=== PATIENT | male | born 1945 | race African-American/Black ===

== ENCOUNTER 2016-11-21 19:11 | Inpatient (IN) ==
[2016-11-21] MEDS ORDERED: LR 1,000 ML IV PRN (19:17)
[2016-11-21] MEDS ORDERED: ZOFRAN IV ONE (19:18)
[2016-11-21] MEDS ORDERED: TYLENOL PO ONE (19:33)
[2016-11-21 19:46] LABS: MANUAL DIFF NEEDED? NO
[2016-11-21 19:48] LABS: BILIRUBIN URINE NEGATIVE (NEGATIVE); BLOOD URINE 3+ (NEGATIVE); CLARITY SL. CLOUDY (CLEAR); COLOR YELLOW; LEUKOCYTES URINE 1+ (NEGATIVE); NITRITE URINE POSITIVE (NEGATIVE); PROTEIN URINE 2+(100 mg/dL) mg/dL (NEGATIVE); SP GRAVITY URINE 1.015; UROBILINOGEN URINE 1+(1 mg/dL)
[2016-11-21 19:51] LABS: BASO% 0.1 % (0.0-0.8); EOS# 0.02 X1000 (0.0-0.7); EOS% 0.2 % (0.0-10.0); HEMATOCRIT 43.3 % (42.0-52.0); HEMOGLOBIN 14.4 g/dL (14.0-18.0); IMM GRAN# 0.02 X1000 (0.0-0.04); IMM GRAN% 0.2 % (0.0-0.5); LYMPH# 1.45 X1000 (1.2-3.4); LYMPH% 16.3 % (20.5-51.1); MCH 26.3 PG (27-31); MCHC 33.3 g/dL (33-37); MCV 79.2 FL (81-99); MONO# 1.26 X1000 (0.11-0.59); MONO% 14.2 % (1.7-9.3); MPV 12.4 FL (7.4-10.4); PLT 180 X1000 (130-400); RBC 5.47 XMIL (4.7-6.1)
[2016-11-21 19:54] LABS: URINE CULTURE PL NEEDED? YES; URINE EPITHELIAL CELLS <10 /HPF (<10); URINE SOURCE CLEAN CATCH; URINE WBC 20-40 /HPF (<10)
[2016-11-21] MEDS ORDERED: ZOSYN 3.375 GM/NS 3.375 GM/50 ML IVPB IV ONE (20:13)
[2016-11-21 20:15] LABS: AGAP 16; ALBUMIN 3.8 g/dL (3.5-5.0); ALKALINE PHOSPHATASE 162 U/L (32-122); BUN 7 mg/dL (8-22); CALCIUM 9.5 mg/dL (8.8-10.2); CHLORIDE 96 mmol/L (98-107); COSMO 274; GOT 121 U/L (10-34); GPT 110 U/L (10-44); LIPASE 15 U/L (13-60); POTASSIUM 3.5 mmol/L (3.5-5.1); SODIUM 131 mmol/L (136-145); TCO2 20 mmol/L (25-35); TOTAL PROTEIN 7.9 g/dL (6.3-8.3)
[2016-11-21] MEDS ORDERED: ZOSYN 3.375 GM/NS 3.375 GM/50 ML IVPB ONE (20:34)
[2016-11-21] MEDS ORDERED: MORPHINE IV ONE (21:31)
--- NOTE | 2016-11-21 21:51 | PROVIDER DOCUMENTATION ---
This chart was entered by Kiesha Payne Scribe, acting as scribe for Berny Moncada MD. HPI-Abdominal Pain/GI Problem - General Chief Complaint: Abdominal Pain Stated Complaint: ABD PAIN Time Seen by Provider: 11/21/16 19:16 Source: patient, family Allergies/Adverse Reactions: Patient Allergies Allergy/AdvReac Type Severity Reaction Status Date / Time hydrocodone bitartrate * AdvReac Severe DIARRHEA Verified 11/21/16 19:29 [From Lortab] Home Medications: Home Medication List Medication Instructions Recorded Confirmed Last Taken Type Amlodipine [Norvasc] 5 mg PO BID 02/10/13 11/21/16 1 Day Ago History Metoprolol [Lopressor] 50 mg PO BID 02/10/13 11/21/16 1 Day Ago History Metformin HCl 500 mg PO BID 07/20/15 11/21/16 1 Day Ago History Omeprazole 40 mg PO DAILY 05/29/16 11/21/16 1 Day Ago History Acetaminophen with Codeine 1 PO Q6H PRN PRN 11/21/16 Unknown History [Tylenol with Codeine #3 Tablet] - History of Present Illness-ABD Nature of Presenting Problems: 71 year old M presents to the ED with a cc of RLQ ABD pain intermittent x"weeks. " states that he has been seen by PCP who sent him to Dr. Morris. Pt had test ran last , ordered by Dr. Morris, and said there was nothing surgical in ABD and to follow back up with PCP. Pt states that he has had diarrhea since Sunday with intermittent chills. states that this morning he vomited prior to eating. Pt has had grits, jello and apple juice. Pt had a fever of 102.9 on arrival to ED. Abdominal Pain Onset Location: reports: RLQ Pain Radiation: reports: no radiation Quality of Pain: reports: aching Severity in ED: reports: mild Onset/Duration: reports: other ("weeks") Timing: reports: still present Associated Symptoms: reports: diarrhea, nausea, vomiting Bruising or Bleeding Gums?: No Similar Symptoms Previously?: Yes Recently seen or treated by another doctor?: Yes Review of Systems - Adult - REVIEW OF SYSTEMS - ADULT Constitutional: reports: fever. denies: chills Eyes: reports: no symptoms reported Ears, Nose, Mouth & Throat: reports: no symptoms reported Cardiovascular: denies: chest pain, palpitations Respiratory: denies: cough, pleurisy Gastrointestinal: reports: abdominal pain, diarrhea, nausea, vomiting Genitourinary: denies: dysuria, hematuria Musculoskeletal: reports: no symptoms reported Integumentary: reports: no symptoms reported Neurological: reports: no symptoms reported Psychiatric: reports: no symptoms reported Endocrine: reports: no symptoms reported Hematologic/Lymphatic: reports: no symptoms reported Allergic/Immunologic: reports: no symptoms reported All Other Systems: Reviewed and Negative Past History - Adult - PAST MEDICAL HISTORY-ADULT Review of Records: reports: Nursing Assessment Review, Medications Reviewed Major Childhood Illnesses: reports: denies history Cardiovascular: reports: cardiac disease, HTN, hyperlipidemia Respiratory: reports: asthma Gastrointestinal: reports: diverticulosis Genitourinary: reports: other (bladder issues) Endocrine/Immune: reports: Diabetes - PRIOR SURGERIES/PROCEDURES Surgical/Procedure History: reports: reviewed, not pertinent, appendectomy, other (left shoulder surgery, bladder surgery) - PRIOR HOSPITALIZATIONS Prior Hospitalizations: reports: for other non-related - IMMUNIZATION STATUS Childhood Immunizations: See Nurse Assessment Flu Vaccine: See Nurse Assessment - FAMILY HISTORY Family History: reviewed, not pertinent - SOCIAL HISTORY Smoking: cigarettes Substance Use: none/never Alcohol Use Frequency: never Physical Exam-General - PHYSICAL EXAM-ADULT Initial Vital Signs Reviewed: Yes - CONSTITUTIONAL General Appearance: appears well, alert, no apparent distress - HEAD, EARS, NOSE, MOUTH & THROAT HENMT: other (dry oral membranes) - RESPIRATORY Respiratory: chest non-tender, lungs clear, normal breath sounds - CARDIOVASCULAR Cardiovascular: normal peripheral pulses, regular rate, rhythm, no edema - GASTROINTESTINAL (ABDOMEN) Abdominal Exam: abnormal bowel sounds (hyperactive), distended, tenderness ( generalized ABD but greater in RUQ) - SKIN Integumentary: normal color, normal turgor, warm/dry - PSYCHIATRIC Psych/Mental Status: normal mood/affect, normal thought content, normal thought process, oriented x 3 Progress - PLAN OF CARE/RESULTS Progress/Plan/Lab Results: Vital Signs - 8 hr 11/21/16 19:12 Temperature 102.9 F H Pulse Rate 119 H Respiratory Rate 20 Blood Pressure 145/86 O2 Sat by Pulse Oximetry 94 L Orders Category Date Time Status Saline Loc DIRECTED Care 11/21/16 19:17 Active NPO Diet 11/21/16 19:17 Active ABDOMEN/PELVIS W/WO CONTRAST [CT] Stat Exams 11/21/16 19:17 Ordered CBC WITH ELECTRONIC DIFF [HEME] Stat Lab 11/21/16 19:17 Ordered COMPREHENSIVE METABOLIC PANEL [CHEM] Stat Lab 11/21/16 19:17 Ordered LIPASE [CHEM] Stat Lab 11/21/16 19:[address] W/POSS RFLX CULT [URINALYSIS] Stat Lab 11/21/16 19:00 Received Lactated Ringers Inj [Lr] 1,000 ml Med 11/21/16 19:17 Active IV 250 mls/hr Ondansetron [Zofran] Med 11/21/16 19:18 Discontinued 4 mg IV NOW ONE Result Diagrams: 11/21/16 19:40 11/21/16 19:40 - CT/MRI 1 CT Study: Abdomen, Pelvis (LLL PNEUMONIA, FATTY LIVER, UNCOMPLICATED DUEODENAL DIVERTICULUM) Departure - Departure Time of Disposition Decision: 21:49 DIAGNOSIS: Abdominal pain Qualifiers: Abdominal location: right upper quadrant Qualified Code(s): R10.11 - Right upper quadrant pain Pneumonia Qualifiers: Pneumonia type: due to unspecified organism Laterality: left Lung location: lower lobe of lung Qualified Code(s): J18.1 - Lobar pneumonia, unspecified organism Urinary tract infection Qualifiers: Urinary tract infection type: acute pyelonephritis Qualified Code(s): N10 - Acute pyelonephritis Disposition: ADMITTED INPATIENT 09 Certified Medical Emergency: Emergent Condition: Stable - Critical Care Note This patient required my direct & personal management of CC.: No This chart was documented by the indicated scribe, (Kiesha Payne Scribe) and accurately reflects the services I performed and decisions made by me, Berny Moncada MD, as attested by the provider's signature.
[2016-11-22] MEDS ORDERED: ZOFRAN IV PRN (00:03)
[2016-11-22] MEDS ORDERED: TYLENOL PO PRN (00:03)
[2016-11-22] MEDS: SODIUM CHLORIDE 0.9% INJ SCH ×3 (00:38→23:44)
[2016-11-22] MEDS: PROTONIX IV SCH ×3 (00:39→23:45)
[2016-11-22] MEDS: HUMALOG SUBQ SCH ×2 (00:39→06:40)
[2016-11-22] MEDS: LOPRESSOR PO SCH ×3 (00:39→20:04)
[2016-11-22] MEDS: ZOSYN 3.375 GM/NS 3.375 GM/50 ML IVPB IV SCH ×4 (03:30→20:06)
[2016-11-22] MEDS ORDERED: NORCO-7.5 PO PRN (06:38)
[2016-11-22 07:03] LABS: HEMATOCRIT 41.9 % (42.0-52.0); HEMOGLOBIN 13.5 g/dL (14.0-18.0); MCHC 32.2 g/dL (33-37); MCV 80.6 FL (81-99); MPV 12.7 FL (7.4-10.4); RBC 5.2 XMIL (4.7-6.1)
[2016-11-22 07:27] LABS: AGAP 11; ALBUMIN 3.4 g/dL (3.5-5.0); ALKALINE PHOSPHATASE 149 U/L (32-122); BUN 7 mg/dL (8-22); CALCIUM 9.1 mg/dL (8.8-10.2); CHLORIDE 100 mmol/L (98-107); COSMO 274; GOT 95 U/L (10-34); GPT 103 U/L (10-44); MAGNESIUM 2.1 mg/dL (1.5-2.7); POTASSIUM 4.3 mmol/L (3.5-5.1); SODIUM 136 mmol/L (136-145); TCO2 25 mmol/L (25-35); TOTAL PROTEIN 6.5 g/dL (6.3-8.3)
[2016-11-22] MEDS: PERCOCET-10 PO PRN ×2 (08:11→20:04)
[2016-11-22] MEDS: NORVASC PO SCH ×2 (08:12→20:04)
--- NOTE | 2016-11-22 09:37 | PROGRESS NOTE ---
DATE: 11/22/2016 SUBJECTIVE: Patient did have fever continuing last night. T-max 102 degrees. Notes otherwise he is starting to feel a bit better. In fact, this morning he is asking to advance his diet. States his abdominal pain is better. Still having some mild cough but no real congestion. PHYSICAL: Vital signs reviewed and stable. Blood sugar 173. AST 95, ALT 103. ASSESSMENT: 1. Acute hepatitis. AST, ALT, alkaline phosphatase all are elevated from his previous labs, although all 3 have also started trending down since his hospitalization. 2. Fever. 3. Sepsis. 4. Left lower lobe pneumonia. 5. Abdominal pain. The patient notes that his abdominal pain this morning is actually a little bit better than admission, although all he has had is clear liquids. Notes this is the same pain he has been having off and on for the past 6 months. PLAN: We will continue patient on Zosyn. Will continue pain control. We will advance diet after CT results. Patient has had recent endoscopies. He certainly could be having intermittent ischemia causing his pain, although he has had no blood in his stool. This could be from previous abdominal surgeries and abdominal adhesions. We will continue to follow. Further orders as needed. cc: Eitan Yen MD
[2016-11-22] MEDS: HUMALOG DOSE (PARKWAY) SUBQ SCH ×3 (11:12→20:32)
--- NOTE | 2016-11-22 11:51 | Diag Imaging Result Document ---
PROCEDURE NAME: ABDOMEN/PELVIS W/WO CONTRAST - 11/21/2016 CT SCAN OF THE ABDOMEN AND PELVIS WITH AND WITHOUT CONTRAST: INDICATION: Right lower quadrant pain and fever. History of cholecystectomy. FINDINGS: Preliminary interpretation was given by the testing consultant radiologist. The lung bases demonstrate consolidation within the superior right lower lobe, suspicious for pneumonia. No pleural effusion. There are cholecystectomy clips. There is no urolithiasis. The liver demonstrates fatty infiltration. The spleen, pancreas, adrenal glands, and right kidney appear normal. There is a 14 mm left renal nodule. This is hyperattenuating and is slightly increased in size from prior study of 05/29/2016. Followup ultrasound is recommended. There is no evidence for obstruction or free air. No abscess. The appendix is not identified. There is no pericecal inflammation. There are degenerative changes about the sacroiliac joints bilaterally. IMPRESSION: 1. Right lower lobe infiltrate, suspicious for pneumonia. 2. Slight enlargement of mildly hyperattenuating left renal nodule. Recommend follow up with ultrasound.
--- NOTE | 2016-11-22 15:51 | Diag Imaging Result Document ---
PROCEDURE NAME: US ABDOMEN-COMPLETE - 11/22/2016 ABDOMINAL ULTRASOUND: FINDINGS: No aneurysmal dilatation to the abdominal aorta. Normal pancreatic body. Pancreatic head and tail are predominately obscured. The inferior vena cava is poorly seen. No focal hepatic abnormality although there is fatty infiltration. The common bile duct measures 3 mm. The gallbladder has been removed. Normal right kidney. No hydronephrosis. Normal left kidney. No hydronephrosis. The spleen is not enlarged. No ascites. An area is measured in the left kidney which does not correspond to the tiny nodule seen on the recent CT. I believe this area, which was measured, is normal. The tiny nodule on CT is not identified. IMPRESSION: 1. Cholecystectomy. 2. Fatty infiltration of the liver. 3. No definite renal nodule.
[2016-11-22] MEDS: NS 1,000 ML IV SCH ×2 (15:53)
--- NOTE | 2016-11-22 16:21 | HISTORY AND PHYSICAL ---
DATE OF SERVICE: 11/21/2016. CHIEF COMPLAINT: Abdominal pain. HISTORY OF PRESENT ILLNESS: This is a 71-year-old male who presented to the emergency room complaining of right lower quadrant abdominal pain that started about a month ago. He has been followed by his primary care physician with testing done over this time and the patient states nothing has been found. He describes his pain as an achy type pain with no exacerbating or alleviating factors. He has had diarrhea, nausea and vomiting with no black or bloody vomitus or stools. He did report intermittent body aches and chills throughout this last 24 hours. He did have a fever of 102.9 on arrival to the emergency room. CT of the abdomen and pelvis was performed which revealed a right lower lobe infiltrate suspicious for pneumonia, a slightly enlarged, mildly hyper attenuating left renal nodule with spleen, pancreas, adrenal glands and right kidney normal. No obstruction or free air. No abscess. The patient has been seen and hospitalized off and on since 2014 with abdominal pain. In review of his past records he has had LFTs within normal limits. However in the emergency room he was found have an AST of 121, an ALT of 110, and alkaline phosphatase of 162, with urine nitrite positive with 20-40 microscopic white blood cells, 10-20 red blood cells, and 2+ bacteria. In the emergency room he was given IV fluids with Zosyn, morphine, and Zofran and admitted for further evaluation and treatment. PAST MEDICAL HISTORY: Asthma, [id number] diabetes, gastroesophageal reflux disease, hyperlipidemia, hypertension, BPH. PAST SURGICAL HISTORY: Appendectomy, cholecystectomy, cystoscopy with release of bladder neck contracture, bipolar TURP of prostatic regrowth. SOCIAL HISTORY: He denies alcohol, tobacco, or illicit drug use. ALLERGIES: Hydrocodone which causes diarrhea. HOME MEDICATIONS: Tylenol #3, omeprazole, Lopressor, Norvasc, metformin. REVIEW OF SYSTEMS: A 14 point review of systems is discussed with patient with pertinent positives stated in HPI. He denied chest pain, palpitations, syncope, dizziness, black or bloody vomitus, black or bloody stools, shortness of breath, PND, orthopnea, hematuria, dysuria, frequency, urgency. PHYSICAL EXAMINATION: GENERAL: This is a 71-year-old male who is sitting in the bed, in no distress. VITAL SIGNS: Blood pressure is 144/60, with a heart rate of 95, respirations of 20, temperature is 99.8 degrees oral, with oxygen saturations of 93%-95% on 2 L nasal cannula. HEENT: Head is normocephalic, atraumatic. Pupils equal, round, react to light. EOMs are intact. Sclerae anicteric. Mucous membranes are moist. NECK: Supple. Trachea midline. CARDIOVASCULAR: Regular rate and rhythm. S1 and S2 are appreciated. PULMONARY: Breath sounds are clear with no increased work of breathing noted. GASTROINTESTINAL: Abdomen is soft, non distended, nontender, with bowel sounds in all 4 quadrants. BACK: No CVAT. No spine tenderness. EXTREMITIES: No clubbing, cyanosis, or edema. Calves are nontender. Pulses are palpable x4. SKIN: Warm and dry. NEUROLOGIC: He is alert and oriented x3. DIAGNOSTIC DATA: WBC is. 8.8, with hemoglobin 14.4, hematocrit 43.3, and platelets of 180,000. Sodium is 131, potassium 3.5, BUN 7, creatinine 1, with a glucose of 332. AST 121, ALT 110, and alkaline phosphatase 162, with a total bilirubin of 0.5, lipase is 15, with urine nitrite positive with 10-20 red blood cells, 20-40 white blood cells, and 2+ bacteria. Culture is pending. CT scan of the abdomen and pelvis reveals right lower lobe infiltrate suspicious for pneumonia, slightly enlargement of a mildly hyper attenuating left renal nodule, is 14 mm, with recommendations to follow up with ultrasound. Liver demonstrates fatty infiltration. Spleen, pancreas, adrenal glands and right kidney appear normal. Appendix is not identified. ASSESSMENT AND PLAN: 1. Acute hepatitis. We will hydrate. We will continue to trend labs. We will obtain abdominal ultrasound. 2. Fever. 3. Sepsis. Causes could be multifactorial as it appears he has hydronephrosis most likely secondary to pneumonia and pyelonephritis. 4. Pyelonephritis. Urine culture is pending. We will continue with antibiotic coverage. 5. Left lower lobe pneumonia. We will continue with supplemental oxygen, antibiotics, and follow. 6. Abdominal pain. PLAN: We will continue with antibiotic coverage, pain and nausea control. Once cultures result antibiotics may be changed according to sensitivities. In regards to the renal nodule he will need to follow up with Dr. Flores for further evaluation. This can be done on an outpatient basis. Dictated by WILLIE Andre for Eitan Yen MD cc: WILLIE Andre MD
[2016-11-23] MEDS: ZOSYN 3.375 GM/NS 3.375 GM/50 ML IVPB IV SCH ×3 (02:41→16:32)
[2016-11-23] MEDS: NS 1,000 ML IV SCH (05:16)
[2016-11-23 05:48] LABS: HEMATOCRIT 40.4 % (42.0-52.0); HEMOGLOBIN 12.9 g/dL (14.0-18.0); MCH 25.8 PG (27-31); MCHC 31.9 g/dL (33-37); MCV 80.8 FL (81-99); MPV 12.6 FL (7.4-10.4)
[2016-11-23] MEDS: HUMALOG DOSE (PARKWAY) SUBQ SCH ×3 (06:15→16:21)
[2016-11-23 06:18] LABS: AGAP 11; ALBUMIN 3.2 g/dL (3.5-5.0); ALKALINE PHOSPHATASE 135 U/L (32-122); BUN 7 mg/dL (8-22); CHLORIDE 101 mmol/L (98-107); COSMO 275; GOT 49 U/L (10-34); GPT 77 U/L (10-44); POTASSIUM 3.8 mmol/L (3.5-5.1); SODIUM 136 mmol/L (136-145); TCO2 24 mmol/L (25-35); TOTAL PROTEIN 6.2 g/dL (6.3-8.3)
--- NOTE | 2016-11-23 07:44 | PROGRESS NOTE ---
DATE: 11/23/2016 SUBJECTIVE: The patient notes that he is feeling a little bit better this morning. He did not really eat yesterday. He did have some soup last night. He denies any change in his abdominal pain. States that it might be slightly better. Denies fevers or chills. States that his cough is better. He has not been out of bed. PHYSICAL EXAMINATION: Vital Signs: Temperature 98.2, pulse 85, respiratory rate 18, BP 133/79, saturation 94% on room air. General: Patient is awake, alert. He is currently in no respiratory distress. He is lying flat in the bed. He is pleasant to talk with. HEENT: Normocephalic, atraumatic. ARISTIDES. Neck: Supple. CV: Regular rate. Chest: Relatively clear. Abdomen: Soft, obese. No masses. Diffusely but mildly tender. Extremities: Moves all extremities. Neurologic: No changes. ASSESSMENT: 1. Acute hepatitis. Liver function tests continue to improve. AST down to 49 from a peak at 121. ALT down to 77 from a peak at 110. Bilirubin is still normal. Ultrasound was normal with fatty liver. 2. Left lower lobe pneumonia. Continues to improve. 3. Urinary tract infection with gram-negative rods. 4. Sepsis, resolved. 5. Fever, resolved. 6. Pyelonephritis. Continue antibiotics. PLAN: The patient continues to improve. We are awaiting for final culture results of his gram- negative rods in his urine. If he advance his diet and his culture is sensitive to oral antibiotics, may be able to discharge home today. We will continue to follow and see. I attempted to contact Dr. Flores yesterday. However, this was unsuccessful. We will again attempt today to arrange followup for Mr. Argueta. We will advance diet. Further orders as needed. cc: Eitan Yen MD
[2016-11-23] MEDS: NORVASC PO SCH (08:41)
[2016-11-23] MEDS: LOPRESSOR PO SCH (08:41)
[2016-11-23] MEDS: SODIUM CHLORIDE 0.9% INJ SCH (11:20)
[2016-11-23] MEDS: PROTONIX IV SCH (11:20)
[2016-11-23 15:24] VITALS: BP 106/57
[2016-11-24 09:08] LABS: HEPATITIS PROFILE ACUTE SEE COMMENTS
--- NOTE | 2016-11-26 06:40 | DISCHARGE SUMMARY ---
ADMISSION DATE: 11/21/2016 DISCHARGE DATE: 11/23/2016 DIAGNOSES: 1. Acute hepatitis, improving. 2. Left lower lobe pneumonia. 3. Escherichia coli urinary tract infection. 4. Sepsis, resolved. 5. Fever, resolved. 6. Pyelonephritis secondary to Escherichia coli urinary tract infection. DIAGNOSTICS: On 11/21/2016, CT of the abdomen and pelvis revealed right lower lobe infiltrate suspicious for pneumonia, slight enlargement of a mildly hyperattenuating left renal nodule. On 11/22/2016, abdominal ultrasound revealed cholecystectomy, fatty infiltration of the liver, and no definite renal nodule. Microbiology: Urine culture revealed ESBL negative E. coli. HOSPITAL COURSE: Mr. Argueta presented to the emergency room complaining of right lower quadrant pain that had been present for a month. He had multiple workups on an outpatient basis, he stated, and all were negative. He was found to have right lower lobe pneumonia for which he was treated initially with IV Zosyn. Once urine cultures returned, transitioned to oral Levaquin for discharge which will also cover his E. coli UTI. He was found to have elevated LFTs which have decreased, improved over the hospitalization. His abdominal pain was intermittent, continued to be intermittent as it has for the past month. We did advance his diet and he did tolerate a diabetic diet with no vomiting and no increase in pain. His CT scan was read as having a 14 mm hyperattenuating left renal nodule. Followup ultrasound revealed no definite renal nodule. However, in review of his past CTs, this has been mentioned over multiple scans in the last 2 years. Therefore, he has been encouraged to follow up with Dr. Flores regarding this. DISCHARGE PHYSICAL EXAMINATION: Cardiovascular: Regular rate and rhythm. S1 and S2 are appreciated. Pulmonary: Breath sounds are clear with no increased work of breathing noted. Gastrointestinal: Abdomen is soft, nontender, nondistended with bowel sounds in all 4 quadrants. Extremities: No clubbing, cyanosis, or edema. Calves nontender and pulses palpable x4. Neurologic: He is alert and oriented x3. DISCHARGE MEDICATIONS: Tylenol #3 one q.8 hours p.r.n., omeprazole 40 daily, Lopressor 50 mg p.o. b.i.d., Norvasc 5 p.o. b.i.d., metformin 500 p.o. b.i.d., Levaquin 500 mg daily for 1 week. FOLLOWUP: 1. He is to follow up with Dr. Flores in the next 2-3 weeks regarding his renal cyst. 2. He needs to follow up his primary care physician, Dr. Jimenez, in the next 2-3 weeks. DISCHARGE VITAL SIGNS: Blood pressure is 106/57, with a heart rate of 79, respirations 20, temperature 97.8 degrees oral, with room air saturations of 94%. CONDITION: He is being discharged home in stable condition with family members. TIME SPENT: This is a greater than 30 minute discharge. Dictated by WILLIE Andre for Eitan Yen MD cc: WILLIE Andre MD
== END 2016-11-23 17:15 | disposition home or self-care (01) ==
LOC: P.ED 19:11 → P.MEDSURG 22:44
PROVIDERS: ATTEND Family Medicine